=== PATIENT | female | born 1995 | race Caucasian/White ===

== ENCOUNTER → 2017-05-01 | Outpatient (CLI) | payer BC ==
[~2017-05-01] MED LIST: NOMEDS
[2017-05-01 17:35] LABS: HEMOGLOBIN 12.7 g/dL (12.2-16.2); LYMPH # 1.9 K/mm3 (0.7-4.5); LYMPH % 24.2 % (10-50.0)
[2017-05-01 18:23] LABS: BUN 9 mg/dL (7-18)
[2017-05-01 18:24] LABS: GFR (ESTIMATED) 91 ML/MIN (59-)
== END ==
LOC: LAB 17:23
PROVIDERS: Internal Medicine Adolescent Medicine
DX: R51 Headache (principal); N92.1 Excessive and frequent menstruation with irregular cycle; Z00.00 Encounter for general adult medical examination without abnormal findings